=== PATIENT | female | born 1965 | race Caucasian/White ===

== ENCOUNTER 2020-10-04 01:11 | Emergency (ER) | payer MEDICAID, SELFPAY ==
[2020-10-04 01:08] VITALS: BP 110/71; PULSE 80; RESP 16; TEMP 36.3; O2SAT 100
--- NOTE | 2020-10-04 01:15 | DI.CT_ITS ---
EXAM: CT CHEST WO CLINICAL HISTORY: fall, etoh, right rib pain, suspect fx TECHNIQUE: Imaging Protocol: Axial computed tomography images with coronal and sagittal reformatted images were created and reviewed CONTRAST MATERIAL: Intravenous: Omnipaque 350 Contrast volume:structured data in ml. COMPARISON: No exams were available for comparison FINDINGS: Tracheobronchial tree: Patent where visualized. Mediastinum and Tamara: No dominant adenopathy or fluid collection. Pulmonary parenchyma: No consolidation or dominant measurable mass. Minimal emphysematous changes jamshid r the apices. Dependent changes posteriorly. Pleura: No effusion or pneumothorax. Heart: The heart is not dilated. No coronary artery calcifications are seen. Aorta: Thoracic aorta non-dilated. No calcifications Upper abdomen: Unremarkable. Small left adrenal adenoma. Lymph nodes: Within normal limits. Bones: Normal. Tubes, Catheters, and Lines: None Soft tissues: Unremarkable. IMPRESSION: No evidence of fracture or pneumothorax. No acute abnormality. RADIATION DOSE DELIVERED: 613.52mGy.cm Total DLP DATA REPOSITORY: All CT scans at this facility are submitted to the National Radiology Data Registry (NRDR) Dose Index Registry (DIR) with the [employer] ([employer]). RADIATION OPTIMIZATION: All CT scans at this facility use at least one of these dose optimization te chniques: automated exposure control; mA and/or kV adjustment per patient size (includes targeted exa ms where dose is matched to clinical indication); or iterative reconstruction.
--- NOTE | 2020-10-04 01:15 | DI.CT_ITS ---
EXAM: CT HEAD CERVICAL SPINE WO CLINICAL HISTORY: fall, frontal hematoma, etoh. TECHNIQUE: Imaging Protocol: Axial computed tomography images with coronal and sagittal reformatted images were created and reviewed COMPARISON: No exams were available for comparison FINDINGS: Head CT Large left frontal scalp hematoma. Ventricles and Extra axial spaces: Normal in size and morphology for the patient's age. Hemorrhage: None. Cerebral parenchyma: Normal. Midline shift: None. Brainstem/Cerebellum: Normal. Calvarium: Normal. Visualized Paranasal sinuses/Mastoids: Clear. Cervical Spine CT BONES: Vertebral body heights are maintained. Alignment is normal. There is no evidence of acute frac ture. Mild degenerative disc changes and facet degenerative changes are seen . SOFT TISSUES: No paraspinal hematoma. The airway appears intact. Nodule lower pole left lobe the thy roid. No pneumothorax is seen at the lung apices. IMPRESSION: Head CT: Left frontal scalp hematoma. No acute skull fracture or hemorrhage . C-spine CT: Mild degenerative changes, no acute abnormality. Incidental thyroid nodule. Ultrasound could be considered for further evaluation if indicated. RADIATION DOSE DELIVERED: LINK-TO-SR Total DLP DATA REPOSITORY: All CT scans at this facility are submitted to the National Radiology Data Registry (NRDR) Dose Index Registry (DIR) with the [employer] (ACR). RADIATION OPTIMIZATION: All CT scans at this facility use at least one of these dose optimization te chniques: automated exposure control; mA and/or kV adjustment per patient size (includes targeted exa ms where dose is matched to clinical indication); or iterative reconstruction.
--- NOTE | 2020-10-04 01:30 | ED.GENADUL_ITS ---
Discharge Plan Disposition Patient Disposition: HOME Discharge Details Clinical Impression: Thyroid nodule, Fall, Contusion of rib on right side, Hematoma of frontal scalp, Elevated ETOH level Primary Care Provider: Keagan Ortiz ED Provider: Kvng Hearn Home Meds and New Rx's Prescriptions: New lidocaine [Lidoderm] 1 PATCH patch 1 patch Topical Q24H Qty: 4 RF: 0 Discharge Instructions Instructions: Concussion (ED), Thyroid Nodules (ED), Rib Contusion (ED) Additional Instructions: You did suffer a notable concussion from this event. Please take it easy for the next few days, relax, and avoid a significant vigorous mental or physical activity. At this time the CT scans of your head neck and chest showed no evidence of fracture. There is a chance that you likely notably contused your ribs. The contusion on the front of your scalp also shows no other signs of fracture. Please use ice over the hematoma on your scalp for the next 24 hours, followed by heating pads to help with the reabsorption of the blood thereafter. For your ribs, please use the Lidoderm patches as directed. You can also take 800 mg of ibuprofen and 1000 mg of Tylenol every 6 hours for pain. If you notice any worsening of your symptoms, or any new symptoms such as vomiting, diarrhea, fever, chills, shortness of breath, chest pain, numbness, weakness, or fainting , please return immediately to the emergency department for reevaluation. Please follow up with your primary care provider as soon as possible for reassessment and reevaluation. As always, it was a pleasure partici pating in your medical care today. Additionally you have a thyroid nodule that was noted on the CT scan of your neck. Please follow-up closely with your family doctor for further assessment, ultrasound, and further evaluation. Referrals: Keagan Ortiz [Primary Care Provider] - Medical Decision Making 55-year-old female with no past medical history presents today for evaluation of fall. Per the patient and her significant other she had a notable amount of alcohol intake tonight, about an hour and a half prior to arrival the patient fell down an entire flight of stairs, family members went to see her and noticed that she was notably altered and confused and somewhat unresponsive for few minutes. EMS was contacted, upon their arrival the patient appeared intoxicated, but was otherwise breathing and responsive. Notable hematoma was noted on the head, notable chest pain particularly on the right ribs. She is brought in for further assessment. Aside for the aforementioned areas, patient has no other complaints at this time. She denies any abdominal pain, or pain in her arms or legs. She admits the pain in her head and her right chest. She denies any IV or illicit drug use. She denies any blood thinner use. Trauma assessment demonstrates no cervical thoracic or lumbar spine tenderness, notable contusion and hematoma over the left frontal skull. Notable right sided rib pain. Bedside ultrasound shows no evidence of clear pneumothorax. With the patient's intoxicated state, c-collar was immediately placed upon her arrival, we will get a CT scan of the head neck chest. Will evaluate for traumatic abnormality, treat patient's pain as needed. 2:[address] imaging has returned, contusion noted on the frontal scalp, no evidence of fracture, cervical spine fracture, rib fracture, or other significant abnormality per virtual radiology. There is a thyroid nodule that was noted on CT scan, will recommend outpatient follow-up. On reassessment and secondary survey patient continues to demonstrate no midline cervical thoracic or lumbar spine tenderness, no focal neurologic deficits, no pain in the extremities. Pain in the ribs slightly improved with Lidoderm patch. Patient appears ANO x4 at this time, she is able to ambulate. With no signs of significant traumatic abnormality, I do feel that the patient is stable after repeat assessment for discharge home with her . I suspect she did suffer a mild concussion from the fall, we recommend rest for the next few days. Recommend close follow- up with her family doctor, will give Lidoderm patch for her rib pain. Discussed red flags which to return. At a extensive discussion with the patient as well regarding the recommended follow-up, Tylenol Motrin for pain, and red flags for which to return. I have extensively reviewed the treatment plan and discharge instructions with the patient and their family. I have addressed all patient concerns at this time. The patient and family was made aware of what symptoms to monitor for that would warrant a return to the emergency department. Discussed the plan with the patient and family, they demonstrate verbal understanding and agreement with our assessment and plan at this time. The documentation in this chart was dictated using [employer] dictation software. Pleas e excuse any dictation errors. FINDINGS: Brain: No intracranial hemorrhage. No cerebral edema. No mass. Cerebral ventricles: No ventriculomegaly Bones/joints: No skull fracture. Paranasal sinuses: Visualized sinuses are unremarkable. No fluid levels. Mastoid air cells: Visualized mastoid air cells are well aerated. Soft tissues: Left frontal scalp hematoma of moderate size. No laceration evident. No foreign debris. IMPRESSION: 1. No intracranial hemorrhage. 2. Left frontoparietal scalp hematoma. 3. No skull fracture. FINDINGS: Bones/joints: No acute fracture. Normal alignment. Sqjv-fm-[id number] degenerative disc disease at C5-C6 and C6-C7. Facet and uncovertebral joint degenerative disease at these levels. Discs/Spinal canal/Neural foramina: No significant disc protrusion. No severe spinal canal stenosis. Mild to moderate left-sided C5-C6 and C6-C7 degenerative neural foraminal narrowing. Lungs: Lung apices are normal. Soft tissues: Suggestion of a inferior left thyroid nodule measuring approximately 2 cm. Recommend clinical correlation. Outpatient nonemergent thyroid ultrasound may be warranted. . IMPRESSION: 1. No cervical spine fracture or dislocation. 2. Degenerative cervical spine disease. 3. Appearance suggesting a lower pole 2 cm left thyroid lobe nodule. Recommend nonemergent outpatient thyroid ultrasound evaluation. Correlation with thyroid serology suggested. Thank you for allowing us to participate in the care of your patient. Dictated and Authenticated by: Uri Akhtar MD 10/04/2020 2:06 AM Eastern Time ([place] & [place]) FINDINGS: Lungs: Basilar dependent pulmonary atelectasis is present. Pleural spaces: Unremarkable. No pneumothorax. No pleural effusion. Heart: Unremarkable. No cardiomegaly. No pericardial effusion. Aorta: Unremarkable. No aortic aneurysm. Lymph nodes: Unremarkable. No enlarged lymph nodes. Bones/joints: Unremarkable. No acute fracture. Soft tissues: Unremarkable. IMPRESSION: No acute findings HPI General Date/Time Provider Initiated Documentation: 10/04/20 01:22 . HPI Narrative: 55-year-old female with no past medical history presents today for evaluation of fall. Per the patient and her significant other she had a notable amount of alcohol intake tonight, about an hour and a half prior to arrival the patient fell down an entire flight of stairs, family members went to see her and noticed that she was notably altered and confused and somewhat unresponsive for few minutes. EMS was contacted, upon their arrival the patient appeared intoxicated, but was otherwise breathing and responsive. Notable hematoma was noted on the head, notable chest pain particularly on the right ribs. She is brought in for further assessment. Aside for the aforementioned areas, patient has no other complaints at this time. She denies any abdominal pain, or pain in her arms or legs. She admits the pain in her head and her right chest. She denies any IV or illicit drug use. She denies any blood thinner use. Related Data Home Medications Medication Instructions Recorded Confirmed lidocaine [Lidoderm] 1 patch TOPICAL Q24H #4 ea 10/04/20 Previous Rx's Medication Instructions Recorded lidocaine [Lidoderm] 1 patch TOPICAL Q24H #4 ea 10/04/20 Allergies Allergy/AdvReac Type Severity Reaction Status Date / Time No Known Allergies Allergy Unverified 10/04/20 01:28 General Stated Complaint: Trauma GERA: 2 Review of Systems All systems reviewed & are unremarkable except as noted in HPI and below [facility] Social History Smoking/Tobacco Use Status: Current every day Smoking risk assessment performed?: Yes Alcohol Intake: current Drug use: Never Substance use type: does not use Do you feel safe at home: Yes Do you feel safe in your relationship?: Yes Exam Narrative Exam Narrative: 1.Const: Well-nourished, Well-developed, appearing stated age 2.Eyes: PERRL, no conjunctival injection, and symmetrical lids. Planes of vision appear intact 3.ENT: Atraumatic external nose and ears. Moist MM. Neck: Symmetric, trachea midline, No thyromegaly. There is no evidence of raccoon eyes, bentley sign, CSF rhinorrhea, mastoid tenderness, cranial crepitus, hemotympanum, exophthalmos, or hyphema. Patient demonstrates intact dentition with no signs of tooth avulsion or fracture, no signs of jaw deformity, no evidence of a LeFort's fracture, with an intact palate, nose and orbital region. There is no evidence of a nasal septal hematoma. No proptosis. Jaw closes symmetrically. Airway is clear. Notable hematoma of the left frontal bone, mild abrasion. 4.CVS: Regular rate and rhythm, Normal s1 and s2. No murmurs, carotid bruits, rubs, or gallops. Radial pulses 2+ bilaterally and symmetric. Dorsalis pedis pulses 2+ bilaterally and symmetric. 2+ capillary refill. No evidence of distant heart sounds. No extremity edema. No evidence of gross hemorrhage. 5.RESP: Airway clear, no obstructions. No abrasions or ecchymosis. Chest movement symmetric with respirations. Notable right chest wall tenderness. Trachea midline. No crepitus. No step offs. No paradoxical movements. Lungs are clear to auscultation bilaterally. No rales, rhonchi, wheezing or stridor. Breath sound symmetric. No Sucking chest wounds. Bedside ultrasound shows good lung slide bilaterally 6.GI: Soft, nondistended, nontender. Bowel tones normoactive. No masses or organomegaly. No ecchymosis or abrasions. No periumbilical ecchymosis or seatbelt sign. No flank or CVA tenderness. No clinical signs of significant trauma. Genital Exam: Intact and traumatically unremarkable genital and rectal exam with no significant bruising, blood, or deformity. Rectal tone normal, stool without gross blood. No clinical evidence of significant abdominal trauma. 7.MSK: No gross deformities or discolorations or lesions. Tolerates full range of motion of extremities without tenderness. All compartments of upper and lower extremities are soft with no tenderness. Vascular exam demonstrates brisk capillary refill and intact pulses in all extremities. Pelvic exam demonstrates a stable pelvis, nontender to lateral compression and palpation of symphysis pubis.. No clinical evidence of significant musculoskeletal trauma. Patient was rolled with C-spine precautions in place, no midline cervical thoracic or lumbar spine tenderness. 8.Skin: Warm, Dry. Contusion over the left t forehead, mild abrasion over the right knee without tenderness 9.Neuro: track repairer II-XII grossly intact. Sensation grossly intact, no focal neurologic deficits. 10.Psych: (AAO) x3. Moderately intoxicated Course Vital Signs Vital signs: Vital Signs Temperature 36.3 C L 10/04/20 01:08 Pulse 80 10/04/20 01:08 Respiratory Rate 16 10/04/20 01:08 Blood Pressure 110/71 10/04/20 01:08 Pulse Oximetry 100 10/04/20 01:08 Temperature 36.3 C L 10/04/20 01:08 Temperature Source Skin 10/04/20 01:08 Pulse 80 10/04/20 01:08 Respiratory Rate 16 10/04/20 01:08 Respiratory Effort 10/04/20 01:23 Blood Pressure 110/71 10/04/20 01:08 Blood Pressure Position Supine 10/04/20 01:08 Pulse Oximetry 100 10/04/20 01:08 Oxygen Delivery Method Room Air 10/04/20 01:08 Oxygen Flow Rate 0 10/04/20 01:08 Pain Level 8 10/04/20 01:23 Comment 10/04/20 01:08
[2020-10-04 01:39] LABS: Abs Immature Grans 0.03 10^3/uL (0.0-0.06); Absolute Basophil Count 0.02 10^3/uL (0.0-0.2); Absolute Eosinophil Count 0.17 10^3/uL (0.0-0.7); Absolute Monocyte Count 0.42 10^3/uL (0.1-0.8); Absolute Neutrophil Count 4.57 10^3/uL (1.2-6.7); Basophils % 0.3; Eosinophils % 2.4; HCT 36.7 % (36.0-46.0); HGB 12.4 g/dL (11.2-15.7); Immature Grans % 0.4; Lymphocytes % 27.7; MCH 31.6 pg (27.0-33.0); MCHC 33.8 % (32.0-36.0); MCV 93.4 fL (80-95); MPV 8.8 fL (8.0-11.0); Monocytes % 5.8; Neutrophils % 63.4; Nucleated RBC 0 %; Platelet Count 202 10^3/uL (130-400); RBC 3.93 10^6/uL (3.93-5.22); RDW 13.9 % (11.7-14.6); RDW-SD 47.7 fL; WBC 7.21 10^3/uL (4.4-10.8)
[2020-10-04 01:52] VITALS: BP 97/64; PULSE 78; PULSE 80; RESP 11; O2SAT 98
[2020-10-04 01:52] LABS: ALT 24 U/L (14-59); AST 25 U/L (15-37); Albumin 3.5 g/dL (3.4-5.0); Alkaline Phosphatase 71 U/L (46-116); Anion Gap 12.9 mmol/L (3-11); BUN 21 mg/dL (7-18); Bilirubin, Total 0.2 mg/dL (0.2-1.0); CO2 21.1 mmol/L (21.0-32.0); CREATININE 0.9 mg/dL (0.55-1.02); Calcium 8.4 mg/dL (8.5-10.1); Chloride 102 mmol/L (98-107); ETHANOL BLOOD 229.4 mg/dL (<3); Glucose 95 mg/dL (74-106); Potassium 3.5 mmol/L (3.5-5.1); Sodium 136 mmol/L (136-145); Total Protein 7.1 g/dL (6.4-8.2)
[2020-10-04] MEDS: Normal Saline 500 ML IV (01:59)
--- NOTE | 2020-10-04 02:00 | NUR.NOTE ---
To CT with RN, INTENS[facility]ARE [facility] REGISTERED NURSE. C-spine precautions maintained.
--- NOTE | 2020-10-04 02:06 | DI.VRAD_ITS ---
PROCEDURE INFORMATION: Exam: CT Head Without Contrast Exam date and time: 10/04/2020 1:26 AM Age: 55 years old Clinical indication: Injury or trauma; Blunt trauma (contusions or hematomas); Injury details: Fell down stairs; Patient HX: Fall, frontal hematoma, ETOH TECHNIQUE: Imaging protocol: Computed tomography of the head without contrast. COMPARISON: No relevant prior studies available. FINDINGS: Brain: No intracranial hemorrhage. No cerebral edema. No mass. Cerebral ventricles: No ventriculomegaly Bones/joints: No skull fracture. Paranasal sinuses: Visualized sinuses are unremarkable. No fluid levels. Mastoid air cells: Visualized mastoid air cells are well aerated. Soft tissues: Left frontal scalp hematoma of moderate size. No laceration evident. No foreign debris. IMPRESSION: 1. No intracranial hemorrhage. 2. Left frontoparietal scalp hematoma. 3. No skull fracture. PROCEDURE INFORMATION: Exam: CT Cervical Spine Without Contrast Exam date and time: 10/04/2020 1:26 AM Age: 55 years old Clinical indication: Injury or trauma; Blunt trauma (contusions or hematomas); Injury details: Fell down stairs; Patient HX: Fall, frontal hematoma, ETOH TECHNIQUE: Imaging protocol: Computed tomography images of the cervical spine without contrast. COMPARISON: No relevant prior studies available. FINDINGS: Bones/joints: No acute fracture. Normal alignment. [id number] degenerative disc disease at C5-C6 and C6-C7. Facet and uncovertebral joint degenerative disease at these levels. Discs/Spinal canal/Neural foramina: No significant disc protrusion. No severe spinal canal stenosis. Mild to moderate left-sided C5-C6 and C6-C7 degenerative neural foraminal narrowing. Lungs: Lung apices are normal. Soft tissues: Suggestion of a inferior left thyroid nodule measuring approximately 2 cm. Recommend clinical correlation. Outpatient nonemergent thyroid ultrasound may be warranted. . IMPRESSION: 1. No cervical spine fracture or dislocation. 2. Degenerative cervical spine disease. 3. Appearance suggesting a lower pole 2 cm left thyroid lobe nodule. Recommend nonemergent outpatient thyroid ultrasound evaluation. Correlation with thyroid serology suggested. Dictated and Authenticated by: Uri Akhtar MD. Ordering:GRIFFIN Calderon MD
--- NOTE | 2020-10-04 02:06 | DI.VRAD_ITS ---
PROCEDURE INFORMATION: Exam: CT Chest Without Contrast; Diagnostic Exam date and time: 10/04/2020 1:48 AM Age: 55 years old Clinical indication: Injury or trauma; Blunt trauma (contusions or hematomas); Patient HX: Fall, ETOH, right rib pain, suspect FX TECHNIQUE: Imaging protocol: Diagnostic computed tomography of the chest without contrast. COMPARISON: No relevant prior studies available. FINDINGS: Lungs: Basilar dependent pulmonary atelectasis is present. Pleural spaces: Unremarkable. No pneumothorax. No pleural effusion. Heart: Unremarkable. No cardiomegaly. No pericardial effusion. Aorta: Unremarkable. No aortic aneurysm. Lymph nodes: Unremarkable. No enlarged lymph nodes. Bones/joints: Unremarkable. No acute fracture. Soft tissues: Unremarkable. IMPRESSION: No acute findings Dictated and Authenticated by: Brock Melgar MD. Ordering:GRIFFIN Calderon MD
[2020-10-04 02:28] VITALS: BP 103/65; PULSE 83; RESP 16; O2SAT 97
[2020-10-04] MEDS: Lidocaine 5% Patch 1 PATCH TP (02:29)
[2020-10-04] MEDS: Ketorolac 30 MG/ML VIAL IVPB (02:29)
[2020-10-04 02:46] VITALS: BP 102/62; PULSE 71; PULSE 81; RESP 14; O2SAT 96
--- NOTE | 2020-10-04 03:32 | NUR.NOTE ---
Ambulated to BR with steady gait. Reports mild dizziness. DC instructions reviewed with pt and .
== END 2020-10-04 03:30 | disposition home or self-care (01) ==
PROVIDERS: Emergency Provider Student in an Organized Health Care Education/Training Program; PCP Family Medicine
DX: S00.03XA Contusion of scalp, initial encounter (principal); S20.211A Contusion of right front wall of thorax, initial encounter; F10.120 Alcohol abuse with intoxication, uncomplicated; Y90.7 Blood alcohol level of 200-239 mg/100 ml; W10.8XXA Fall (on) (from) other stairs and steps, initial encounter; R93.7 Abnormal findings on diagnostic imaging of other parts of musculoskeletal system
CPT/HCPCS: 36415; 71250; 80053; 90471; 96361; 96374; 96375; 99285; 70450; 72125; 80320; 85025; J1885